=== PATIENT | male | born 1995 | race Caucasian/White ===

== ENCOUNTER 2016-05-28 01:40 | Emergency (ER) ==
[2016-05-28 01:54] VITALS: BP 126/76; TEMP 97.2; BMI 33.9
[2016-05-28] MEDS ORDERED: SODIUM CHLORIDE 1,000 ML IV STA ×2 (02:05)
[2016-05-28 02:12] LABS: BASOPHILS # (AUTO) 0.1 K/uL (0-0.2); BASOPHILS % (AUTO) 0.8 % (0.0-3.0); EOSINOPHILS # (AUTO) 0.1 K/ul (0.0-0.7); EOSINOPHILS % (AUTO) 1.2 % (0.0-7.0); HEMATOCRIT 41.7 % (42.0-52.0); HEMOGLOBIN 14.9 g/dl (14.0-18.0); IMMATURE GRANULOCYTE % (AUTO) 0.5 % (0.0-5.0); LYMPHOCYTES # (AUTO) 1.2 K/uL (0.60-3.4); MEAN CORPUSCULAR HEMOGLOBIN 27.9 pg (27.0-31.0); MEAN CORPUSCULAR HGB CONC 35.7 (31.8-35.4); MEAN CORPUSCULAR VOLUME 77.9 fl (80.0-94.0); MONOCYTES # (AUTO) 0.3 K/uL (0.4-2.0); MONOCYTES % (AUTO) 4.6 (0-10); NEUTROPHILS # (AUTO) 4.3 K/ul (2.0-6.9); NEUTROPHILS % (AUTO) 72.9; PLATELET COUNT 210 10^3/uL (140-440); RED BLOOD COUNT 5.35 10^6/ul (4.70-6.10)
[2016-05-28 02:31] LABS: ALBUMIN 4.4 g/dL (3.4-5.0); ALBUMIN/GLOBULIN RATIO 1.47; ANION GAP 14.9; BILIRUBIN,TOTAL 0.46 mg/dL (0.00-1.20); BUN/CREATININE RATIO 10.52; CALCIUM 9.3 mg/dL (8.2-10.2); CREATININE 0.95 mg/dL (0.60-1.10); POTASSIUM 3.9 mmol/L (3.5-5.1); TOTAL PROTEIN 7.4 g/dL (6.4-8.2)
[2016-05-28 02:51] LABS: COCAIN SCREEN,URINE NEGATIVE (NEGATIVE)
--- NOTE | 2016-05-28 03:09 | ED.PDOC ---
General ED Provider: Dr. ARIANE BATRES-ER Chief Complaint: Alcohol Intoxication Stated Complaint: i think i have etoh poisoning--drank etoh and called parents Time Seen by Physician: 01:45 Mode of Arrival: Walk-In Information Source: Patient, Family Exam Limitations: No limitations Primary Care Provider: ARIANE BATRES Nursing and Triage Documentation Reviewed and Agree: Yes Neurological Complaint Exam - Altered Mental Status Complaint/Exam Current Mental Status: Other (lethargy) Onset: Gradual Symptoms Are: Still present Initial Severity: Mild Current Severity: Mild Eye Deviation Present: No Character: Reports: Lethargy. Denies: Confusion, Agitation, Responsiveness Aggravating: Reports: Ingestion Alleviating: Reports: None Associated Signs and Symptoms: Denies: Dizziness, Weakness, Headache, Fever, Illness, Nuchal rigidity, Seizure, Nausea, Vomiting, Recently depressed, Trauma Cardiac Risk Factors: Reports: None CVA Risk Factors: Reports: None Related Surgical History: Reports: None Carotid Bruit Present: No Glascow Coma Scale (see protocol): 15 Nystagmus Present: No Gag Reflex Present: Yes Meningeal Signs Positive: No Focal Weakness: Present: None Focal Sensory Loss: Present: None Gait: Normal [id number]: Normal Findings Romberg Test Positive: No Heel to Toe Normal: Yes Signs of Injury: Present: Normal findings Thrombolytics Considered: No Differential Diagnoses: Intoxication Review of Systems - Review Of Systems Constitutional: Reports: No symptoms Eyes: Reports: No symptoms Ears, Nose, Mouth, Throat: Reports: No symptoms Respiratory: Reports: No symptoms Cardiac: Reports: No symptoms GI: Reports: No symptoms : Reports: No symptoms Musculoskeletal: Reports: No symptoms Skin: Reports: No symptoms Neurological: Reports: No symptoms Endocrine: Reports: No symptoms Hematologic/Lymphatic: Reports: No symptoms All Other Systems: Reviewed and Negative Past Medical History - Past Medical History Previously Healthy: Yes Endocrine: Reports: None Cardiovascular: Reports: None Respiratory: Reports: None Hematological: Reports: None Gastrointestinal: Reports: None Genitourinary: Reports: None Neuro/Psych: Reports: None Musculoskeletal: Reports: None Cancer: Reports: None - Surgical History General Surgical History: Reports: None - Family History Family History: Reports: None - Social History Smoking Status: Never smoker Hx Substance Use: No Alcohol Screening: Occasionally - Immunizations Tetanus Shot up to Date: (UNKNOWN) Physical Exam - Physical Exam Appearance: Well-appearing, No pain distress, Well-nourished Eyes: ROSE ENT: Ears normal, Nose normal, Oropharynx normal Respiratory: Airway patent, Breath sounds clear, Breath sounds equal, Respirations nonlabored Cardiovascular: RRR, Pulses normal, No rub, No murmur GI/: Soft, Nontender, No masses, Bowel sounds normal, No Organomegaly Musculoskeletal: Normal strength, ROM intact, No edema, No calf tenderness Skin: Warm, Dry, Normal color Neurological: Sensation intact, Motor intact, Reflexes intact, Cranial nerves intact, Alert, Oriented Psychiatric: Affect appropriate, Mood appropriate Re-Evaluation - Re-Evaluation Time of Re-Evaluation: 03:09 Status: Improved (alert) Vital Signs Stable: Yes Pain Level: 0 Appearance: NAD Lungs: Clear Skin: Warm and Dry Neuro: Alert and Oriented X3 CV: RRR Critical Care Note - Critical Care Note Total Time (mins): 0 Course - Course Hematology/Chemistry: 05/28/16 02:05 05/28/16 02:05 Orders, Labs, Meds: Lab Review 05/28/16 05/28/16 02:00 02:05 WBC 5.90 RBC 5.35 Hgb 14.9 Hct 41.7 L MCV 77.9 L MCH 27.9 MCHC 35.7 H RDW Coeff of Niyah 12.6 Plt Count 210 Immature Gran % (Auto) 0.5 Neut % (Auto) 72.9 Lymph % (Auto) 20.0 [place] % (Auto) 4.6 Eos % (Auto) 1.2 Baso % (Auto) 0.8 Immature Gran # (Auto) 0.0 Neut # 4.3 Lymph # 1.2 [place] # 0.3 L Eos # 0.1 Baso # 0.1 Sodium 139 Potassium 3.9 Chloride 103 Carbon Dioxide 25 Anion Gap 14.9 BUN 10 Creatinine 0.95 Estimated GFR (MDRD) 100.00 BUN/Creatinine Ratio 10.52 Glucose 106 H Calcium 9.3 Total Bilirubin 0.46 AST 24 ALT 36 Alkaline Phosphatase 72 Total Protein 7.4 Albumin 4.4 Globulin 3.0 Albumin/Globulin Ratio 1.47 Urine Opiates Screen Negative Ur Oxycodone Screen Negative Urine Methadone Screen Negative Ur Propoxyphene Screen Negative Ur Barbiturates Screen Negative U Tricyclic Antidepress Negative Ur Phencyclidine Scrn Negative Ur Amphetamine Screen Positive U Methamphetamines Scrn Negative U Benzodiazepines Scrn Negative Urine Cocaine Screen Negative U Cannabinoids Screen Negative Plasma/Serum Alcohol 168.5 H Orders Category Date Time Status IV [ED IV/MEDIPORT/POWERPORT] .ONCE EMERGENCY 05/28/16 02:04 Active BLOOD ALCOHOL Stat LAB 05/28/16 02:05 Completed CBC W/ AUTO DIFF Stat LAB 05/28/16 02:05 Completed COMPREHENSIVE METABOLIC PANEL Stat LAB 05/28/16 02:05 Completed URINE DRUG SCREEN (RAPID FOR ED) [DRUG SCREEN, URINE, LAB 05/28/16 02:00 Completed RAPID] Stat 0.9 % Sodium Chloride [Saline Flush] MEDS 05/28/16 02:04 Ordered 1 syr IVF PRN PRN Sodium Chloride 0.9% [Sodium Chloride] 1,000 ml MEDS 05/28/16 02:05 Ordered IV 1,000 mls/hr Sodium Chloride 0.9% [Sodium Chloride] 1,000 ml MEDS 05/28/16 02:05 Stop Req IV 150 mls/hr Medications Generic Name Dose Route Start Last Admin Trade Name Freq PRN Reason Stop Dose Admin Sodium Chloride 1,000 mls @ 150 mls/hr 05/28/16 02:05 05/28/16 02:18 Sodium Chloride IV 05/28/16 08:44 150 mls/hr .[id number] STA Administration Sodium Chloride 1 syr 05/28/16 02:04 05/28/16 02:18 Saline Flush IVF 1 syr PRN PRN Administration To flush IV Vital Signs: Temp Pulse Resp BP Pulse Ox 05/28/16 01:41 97.2 F L 73 18 126/76 99 Departure - Departure Time of Disposition: 03:10 Disposition: HOME SELF-CARE Discharge Problem: Alcohol intoxication Instructions: Alcohol Intoxication (ED) Condition: Good Pt referred to PMD for follow-up: Yes Allergies/Adverse Reactions: Allergies albuterol Adverse Reaction (Verified 05/28/16 01:52) HAD A CHILD GOT TOO TACHY, FINGER [employer]ER TOLD THEM NOT TO GIVE ANYMORE Home Medications: Ambulatory Orders Dextroamphetamine/Amphetamine [Adderall 30 mg Tablet] 30 mg PO DAILY 05/28/16 Disposition Discussed With: Patient, Family
== END 2016-05-28 03:50 | disposition home or self-care (01) ==
LOC: ED 01:40
DX: F10.129 Alcohol abuse with intoxication, unspecified (principal)
CPT/HCPCS: 36415; 80053; 80306; 80307; 85025; 96360; 96361; 99284